=== PATIENT | female | born 1985 | race Caucasian/White ===

== ENCOUNTER → 2017-09-06 | Outpatient (CLI) | payer OTHER ==
[~2017-09-06] MED LIST: ACET-1718 PO; ACET-2031 PO; ADV250/50 INH; ALB0.5 INH; BUPR300T55 PO; BUSP15TA PO; DESV50TA9 PO; DULO60CA51 PO; IBU600 PO; LEVO50 PO; LOR5 PO; TRA50 PO; [UNRECOGNIZED DRUG - CODE] MC
== END ==
LOC: LAB 09:29
PROVIDERS: ATTEND Obstetrics & Gynecology Gynecology
DX: Z32.00 Encounter for pregnancy test, result unknown (principal)
CPT/HCPCS: 36415; 84144; 84702

== ENCOUNTER → 2017-09-08 | Outpatient (CLI) | payer OTHER ==
[2017-09-08 09:37] LABS: PLATELET COUNT, AUTOMATED 268 K/uL (150-450)
== END ==
LOC: LAB 09:20
PROVIDERS: ATTEND Nurse Practitioner Family
DX: Z32.01 Encounter for pregnancy test, result positive (principal); Z01.83 Encounter for blood typing; Z13.0 Encounter for screening for diseases of the blood and blood-forming organs and certain disorders involving the immune mechanism; Z11.3 Encounter for screening for infections with a predominantly sexual mode of transmission; Z11.59 Encounter for screening for other viral diseases; Z11.8 Encounter for screening for other infectious and parasitic diseases; Z13.29 Encounter for screening for other suspected endocrine disorder
CPT/HCPCS: 36415; 84439; 84443; 84702; 85025; 86592; 86703; 86762; 86803; 86850; 86900; 86901; 87340

== ENCOUNTER → 2017-09-10 | Outpatient (CLI) | payer OTHER | LOC: LAB 08:32 | PROVIDERS: ATTEND Physician Assistant | DX: Z32.01 Encounter for pregnancy test, result positive (principal) | CPT/HCPCS: 36415; 84702 ==

== ENCOUNTER 2017-09-22 02:19 | Emergency (ER) | payer OTHER ==
--- NOTE | 2017-09-22 02:23 | ER Report ---
History and Physical Time Seen By MD: 02:22 HPI/ROS CHIEF COMPLAINT: Vaginal bleeding HISTORY OF PRESENT ILLNESS: 32-year-old female G3, P1, ectopic 1 now 6 weeks. Patient seen a fertility specialist in [place]. He began spotting last night at approximately 6 PM some dark brown bleeding on wiping after urination. She had no cramps pressure pain in her lower abdomen. She's had no fever, chills or dysuria. Throughout the night it became dark red. More prominent. Patient presents because she is more concerned REVIEW OF SYSTEMS: Respiratory: No cough, no dyspnea. Cardiovascular: No chest pain, no palpitations. Gastrointestinal: No vomiting, no abdominal pain. Musculoskeletal: No back pain. Allergies: Coded Allergies: cefaclor (Verified Allergy, Intermediate, Hives, 01/29/13) tramadol (Verified Allergy, Mild, 01/29/13) Home Meds Reported Medications Aspirin (ASPIR 81) 81 Mg Tablet.dr, 81 MG PO QDAY, TAB 09/22/17 Progesterone,Micronized (PROGESTERONE) 200 Mg Capsule, 200 MG PO BID, CAPSULE 09/22/17 Levothyroxine Sodium (LEVOTHYROXINE SODIUM) 50 Mcg Tablet, 25 MCG PO QDAY, TAB 09/22/17 Discontinued Reported Medications Albuterol (ALBUTEROL) 25 Gm Powder, 25 GM MC PRN 01/29/13 Hx Smoking: No Smoking Status: Never Smoker Exposure to Second Hand Smoke?: No Hx Substance Use Disorder: No Hx Alcohol Use: No Constitutional Vital Sign - Last 24 Hours 09/22/17 09/22/17 09/22/17 09/22/17 02:33 02:34 02:39 02:44 Temp 98.0 Pulse 73 77 Resp 18 B/P (MAP) 109/74 109/74 (86) Pulse Ox 94 97 96 09/22/17 09/22/17 09/22/17 09/22/17 02:49 02:54 02:57 02:58 Pulse 66 70 73 B/P (MAP) 99/54 (69) 111/71 (84) Pulse Ox 96 96 98 99 09/22/17 09/22/17 09/22/17 09/22/17 02:59 03:04 03:14 03:19 Pulse 76 73 74 81 Resp 16 8 13 22 B/P (MAP) 121/85 (97) Pulse Ox 98 98 98 98 09/22/17 09/22/17 09/22/17 09/22/17 03:24 03:29 03:30 03:34 Pulse ? B/P (MAP) ???/??? (1665) 09/22/17 09/22/17 09/22/17 09/22/17 03:49 03:54 03:59 04:00 Pulse 66 69 65 B/P (MAP) 103/53 (70) Pulse Ox 95 94 09/22/17 09/22/17 09/22/17 09/22/17 04:09 04:14 04:19 04:24 Pulse 64 64 62 62 Pulse Ox 94 95 96 95 09/22/17 04:29 Pulse Ox 96 Physical Exam General Appearance: The patient is alert, has no immediate need for airway protection and no current signs of toxicity. Orthostatics equivocal, afebrile, pulse ox normal Eyes: Pupils equal and round no injection. Respiratory: Chest is non tender, lungs are clear to auscultation. Cardiac: regular rate and rhythm Gastrointestinal: Abdomen is soft and non tender, no masses, bowel sounds normal. Musculoskeletal: Neck: Neck is supple and non tender. Extremities have full range of motion and are non tender. Skin: No rashes or lesions. DIFFERENTIAL DIAGNOSIS: After history and physical exam differential diagnosis was considered for vaginal bleeding including but not limited to ectopic , menses, miscarriage, and dysfunctional uterine bleeding. Medical Decision Making Data Points Result Diagram: 09/22/17 0248 09/22/17 0248 Laboratory Hematology Test 09/22/17 02:48 Red Blood Count 4.91 M/uL (4.17-5.56) Mean Corpuscular Volume 90.2 fL (80.0-96.0) Mean Corpuscular Hemoglobin 31.2 pg (26.0-33.0) Mean Corpuscular Hemoglobin Concent 34.6 g/dL (32.0-36.0) Red Cell Distribution Width 13.1 % (11.5-14.5) Mean Platelet Volume 7.6 fL (7.2-11.1) Neutrophils (%) (Auto) 56.1 % (39.4-72.5) Lymphocytes (%) (Auto) 29.6 % (17.6-49.6) Monocytes (%) (Auto) 12.2 % (4.1-12.4) Eosinophils (%) (Auto) 1.3 % (0.4-6.7) Basophils (%) (Auto) 0.8 % (0.3-1.4) Nucleated RBC Relative Count (auto) 0.0 /100WBC Neutrophils # (Auto) 4.3 K/uL (2.0-7.4) Lymphocytes # (Auto) 2.3 K/uL (1.3-3.6) Monocytes # (Auto) 0.9 K/uL (0.3-1.0) Eosinophils # (Auto) 0.1 K/uL (0.0-0.5) Basophils # (Auto) 0.1 K/uL (0.0-0.1) Nucleated RBC Absolute Count (auto) 0.00 K/uL Prothrombin Time 13.6 seconds (12.0-14.4) Prothromb Time International Ratio 1.04 Activated Partial Thromboplast Time 29 seconds (23-35) Sodium Level 139 mmol/L (137-145) Potassium Level 3.4 mmol/L (3.5-5.0) Chloride Level 105 mmol/L (98-107) Carbon Dioxide Level 22 mmol/L (22-31) Blood Urea Nitrogen 9 mg/dl (7-18) Creatinine 0.80 mg/dl (0.52-1.04) Glomerular Filtration Rate Calc > 60.0 Random Glucose 83 mg/dl (75-110) Calcium Level 8.6 mg/dl (8.4-10.2) Total Bilirubin 1.5 mg/dl (0.2-1.3) Aspartate Amino Transf (AST/SGOT) 18 U/L (0-35) Alanine Aminotransferase (ALT/SGPT) 32 U/L (0-56) Alkaline Phosphatase 60 U/L (0-126) Total Protein 6.9 gm/dl (6.3-8.2) Albumin 3.8 g/dl (3.5-5.0) Human Chorionic Gonadotropin, Qual Positive (NEGATIVE) Human Chorionic Gonadotropin, Quant 74 mIU/ml Chemistry Test 09/22/17 02:48 White Blood Count 7.7 k/uL (4.5-11.0) Red Blood Count 4.91 M/uL (4.17-5.56) Hemoglobin 15.3 g/dL (12.0-16.0) Hematocrit 44.3 % (34.0-47.0) Mean Corpuscular Volume 90.2 fL (80.0-96.0) Mean Corpuscular Hemoglobin 31.2 pg (26.0-33.0) Mean Corpuscular Hemoglobin Concent 34.6 g/dL (32.0-36.0) Red Cell Distribution Width 13.1 % (11.5-14.5) Platelet Count 251 K/uL (150-450) Mean Platelet Volume 7.6 fL (7.2-11.1) Neutrophils (%) (Auto) 56.1 % (39.4-72.5) Lymphocytes (%) (Auto) 29.6 % (17.6-49.6) Monocytes (%) (Auto) 12.2 % (4.1-12.4) Eosinophils (%) (Auto) 1.3 % (0.4-6.7) Basophils (%) (Auto) 0.8 % (0.3-1.4) Nucleated RBC Relative Count (auto) 0.0 /100WBC Neutrophils # (Auto) 4.3 K/uL (2.0-7.4) Lymphocytes # (Auto) 2.3 K/uL (1.3-3.6) Monocytes # (Auto) 0.9 K/uL (0.3-1.0) Eosinophils # (Auto) 0.1 K/uL (0.0-0.5) Basophils # (Auto) 0.1 K/uL (0.0-0.1) Nucleated RBC Absolute Count (auto) 0.00 K/uL Prothrombin Time 13.6 seconds (12.0-14.4) Prothromb Time International Ratio 1.04 Activated Partial Thromboplast Time 29 seconds (23-35) Glomerular Filtration Rate Calc > 60.0 Calcium Level 8.6 mg/dl (8.4-10.2) Total Bilirubin 1.5 mg/dl (0.2-1.3) Aspartate Amino Transf (AST/SGOT) 18 U/L (0-35) Alanine Aminotransferase (ALT/SGPT) 32 U/L (0-56) Alkaline Phosphatase 60 U/L (0-126) Total Protein 6.9 gm/dl (6.3-8.2) Albumin 3.8 g/dl (3.5-5.0) Human Chorionic Gonadotropin, Qual Positive (NEGATIVE) Human Chorionic Gonadotropin, Quant 74 mIU/ml Coagulation Test 09/22/17 02:48 Prothrombin Time 13.6 seconds Prothromb Time International Ratio 1.04 Activated Partial Thromboplast Time 29 seconds EKG/Imaging Imaging Results: Ultrasound of the 1st trimester transvaginal ultrasound was obtained. The results of the study are ultrasound: Indication: First trimester bleeding. Technique: Transvaginal imaging, with Doppler. Comparison: None for this . Findings: The uterus is normal in size and shape, measuring 8.7 x 6.2 x 4.1 cm. The endometrial stripe measures 13 mm. There is no evidence of intrauterine gestation or fluid. The right ovary measures 3.7 x 2.4 x 1.4 cm and appears unremarkable. The left ovary measures 2.5 x 2.0 x 1.3 cm and appears unremarkable. Doppler images demonstrate no evidence of ovarian torsion. No adnexal mass or fluid collection is identified. There is no evidence of free fluid in the pelvis. IMPRESSION: There is no evidence of intrauterine gestation. No adnexal mass or fluid collection is identified. The study was read by the radiologist. I viewed the images myself on the PACS system. ED Course/Re-evaluation Clinical Indication for ER IV: Hydration, IV Access ED Course Patient was admitted to an examination room. H&P was done. The dental diagnoses was considered. On conical examination. Patient has stable vital signs. Her H&H is stable. Patient was treated with IV fluid hydration 1 L. She declined medicine for nausea or pain. Her Quant returns at 74. Pelvic ultrasound was performed which is unremarkable for obvious ectopic or intrauterine . Patient likely miscarriaging. She is advised to follow -up with her fertility specialist as an appointment in 2 days. She is cautioned return to the ER for any heavy vaginal bleeding. Decision to Disposition Date: Sep 22, 2017 Decision to Disposition Time: 04:21 Depart Departure Latest Vital Signs Vital Signs Date Time Temp Pulse Resp B/P (MAP) Pulse Ox O2 Delivery O2 Flow Rate FiO2 09/22/17 04:29 96 09/22/17 04:24 62 09/22/17 04:00 103/53 (70) 09/22/17 03:19 22 09/22/17 02:33 98.0 Impression: Primary Impression: Threatened miscarriage Condition: Improved Disposition: HOME OR SELF-CARE Referrals: MEGA NEWBERRY (PCP) Patient Instructions: Threatened Miscarriage (ED) Additional Instructions: Follow-up with your [facility] as planned in 2 days Turned to the ER for any heavy vaginal bleeding IRIS PAUL DO Sep 22, 2017 02:22
[2017-09-22] MEDS ORDERED: NS(*) 0.9% 1000 ML BAG 1,000 ML IV ONE (02:41)
[2017-09-22] MEDS ORDERED: LEVO50TA86 PO (02:41)
[2017-09-22] MEDS ORDERED: PROG200C PO (02:41)
[2017-09-22] MEDS ORDERED: ASPI-1471 PO (02:41)
[2017-09-22 03:03] LABS: PLATELET COUNT, AUTOMATED 251 K/uL (150-450)
[2017-09-22 03:05] LABS: INR 1.04
[2017-09-22 04:00] VITALS: BP 103/53
--- NOTE | 2017-09-22 04:12 | RADIOLOGY IMAGING REPORT ---
FACILITY: [facility] PATIENT NAME: Annel Allan : 1985 MR: [id number] V: [id number] EXAM DATE: ORDERING PHYSICIAN: IRIS PAUL TECHNOLOGIST: Location: [facility] [place] Patient: Annel Allan : 1985 Visit/Account:[id number] Date of Sevice: 09/22/2017 ultrasound: Indication: First trimester bleeding. Technique: Transvaginal imaging, with Doppler. Comparison: None for this . Findings: The uterus is normal in size and shape, measuring 8.7 x 6.2 x 4.1 cm. The endometrial stripe measures 13 mm. There is no evidence of intrauterine gestation or fluid. The right ovary measures 3.7 x 2.4 x 1.4 cm and appears unremarkable. The left ovary measures 2.5 x 2 .0 x 1.3 cm and appears unremarkable. Doppler images demonstrate no evidence of ovarian torsion. No a dnexal mass or fluid collection is identified. There is no evidence of free fluid in the pelvis. IMPRESSION: There is no evidence of intrauterine gestation. No adnexal mass or fluid collection is id entified. Report Dictated By: Sascha Esposito MD at 09/22/2017 4:00 AM Report E-Signed By: Sascha Esposito MD at 09/22/2017 4:07 AM WSN:[id number]
== END 2017-09-22 04:34 | disposition home or self-care (01) ==
LOC: ER 02:24
DX: O20.0 Threatened abortion (principal); Z3A.01 Less than 8 weeks gestation of pregnancy
CPT/HCPCS: 76817; 84702; 84703; 85025; 85610; 85730; 86850; 86900; 86901; 96360; 99284; J7030; 82040; 82247; 82310; 82374; 82435; 82565; 82947; 84075; 84132; 84155; 84295; 84450; 84460; 84520

== ENCOUNTER → 2017-09-23 | Outpatient (CLI) | payer OTHER ==
[~2017-09-23] MED LIST changes: +ASPI-1471 PO; +LEVO50TA86 PO; +PROG200C PO
== END ==
LOC: LAB 09:00
PROVIDERS: ATTEND Obstetrics & Gynecology Gynecology
DX: Z32.01 Encounter for pregnancy test, result positive (principal)
CPT/HCPCS: 36415; 84702

== ENCOUNTER → 2017-09-25 | Outpatient (CLI) | payer OTHER | LOC: LAB 09:07 | PROVIDERS: ATTEND Nurse Practitioner Family | DX: O03.9 Complete or unspecified spontaneous abortion without complication (principal) | CPT/HCPCS: 36415; 84702 ==

== ENCOUNTER → 2017-09-30 | Outpatient (CLI) | payer OTHER | LOC: LAB 08:02 | PROVIDERS: ATTEND Physician Assistant | DX: O03.9 Complete or unspecified spontaneous abortion without complication (principal) | CPT/HCPCS: 36415; 84702 ==

== ENCOUNTER → 2017-10-28 | Outpatient (CLI) | payer OTHER | LOC: LAB 08:31 | PROVIDERS: ATTEND Obstetrics & Gynecology Gynecology | DX: Z13.29 Encounter for screening for other suspected endocrine disorder (principal); Z13.0 Encounter for screening for diseases of the blood and blood-forming organs and certain disorders involving the immune mechanism; N96 Recurrent pregnancy loss; Z14.8 Genetic carrier of other disease | CPT/HCPCS: 36415; 81240; 83090; 84146; 84443; 85300; 85303; 85306; 85610; 85613; 85730; 86146; 86147 ==

== ENCOUNTER → 2018-01-13 | Outpatient (CLI) | payer OTHER | LOC: LAB 08:08 | PROVIDERS: ATTEND Nurse Practitioner Family | DX: Z31.41 Encounter for fertility testing (principal) | CPT/HCPCS: 36415; 86147 ==

== ENCOUNTER → 2018-01-16 | Outpatient (REF) | payer OTHER | LOC: ZZSENDIN 11:24 | PROVIDERS: ATTEND Nurse Practitioner Family | DX: Z13.29 Encounter for screening for other suspected endocrine disorder (principal); Z13.0 Encounter for screening for diseases of the blood and blood-forming organs and certain disorders involving the immune mechanism; Z14.8 Genetic carrier of other disease; N96 Recurrent pregnancy loss | CPT/HCPCS: 86147 ==

== ENCOUNTER → 2018-06-06 | Outpatient (CLI) | payer OTHER ==
[2018-06-06 10:41] LABS: LDL CHOLESTEROL 98 mg/dl
== END ==
LOC: LAB 08:04
PROVIDERS: ATTEND Nurse Practitioner Family
DX: Z13.1 Encounter for screening for diabetes mellitus (principal); Z13.220 Encounter for screening for lipoid disorders; Z13.29 Encounter for screening for other suspected endocrine disorder; N92.6 Irregular menstruation, unspecified
CPT/HCPCS: 36415; 82040; 82247; 82310; 82374; 82435; 82465; 82565; 82627; 82947; 82950; 83001; 83002; 83036; 83718; 84075; 84132; 84146; 84155; 84295; 84403; 84439; 84443; 84450; 84460; 84478; 84520; 84702

== ENCOUNTER → 2018-09-29 | Outpatient (CLI) | payer OTHER ==
[~2018-09-29] MED LIST changes: +LEVO75TA73 PO
--- NOTE | 2018-09-29 14:22 | RADIOLOGY IMAGING REPORT ---
FACILITY: [facility] PATIENT NAME: Annel Allan : 1985 MR: [id number] V: [id number] EXAM DATE: ORDERING PHYSICIAN: BECKI WONG TECHNOLOGIST: Location: [facility] [place] Patient: Annel Allan : 1985 Visit/Account:[id number] Date of Sevice: 09/29/2018 [facility] [place]AGINAL NON-OB HISTORY: IVF TECHNIQUE: Transvaginal ultrasound pelvis. COMPARISON: None. FINDINGS: Uterus: ; 7.4 cm length x 3.2 cm AP x not measured transverse. Myometrium: Unremarkable. Endometrium: Trilaminar appearance; double thickness 8.3 mm. Cervix: Grossly negative. Ovaries: Right - 3.5 x 2.1 x 2.1 cm. 10 follicles are identified in the right ovary although all of them measuring less than 10 mm. Left - 3.3 x 1.7 x 1.8 cm. Seven follicles are identified in the left ovary of which three kaleigh ure greater than 10 mm Blood flow is documented in each ovary by duplex Doppler ultrasound. Adnexa: Grossly unremarkable. Free pelvic fluid: None. IMPRESSION: There is a trilaminar appearance to the endometrium measuring 8.3 mm in thickness 10 follicles are identified in the right ovary although all of them measuring less than 10 mm Seven follicles are identified in the left ovary of which three measure greater than 10 mm Report Dictated By: No Salvador MD at 09/29/2018 2:00 PM Report E-Signed By: No Salvador MD at 09/29/2018 2:18 PM [id number]:[email or web address]
== END ==
LOC: RAD 11:37
PROVIDERS: ATTEND Student in an Organized Health Care Education/Training Program
DX: Z02.9 Encounter for administrative examinations, unspecified (principal)